=== PATIENT | female | born 1980 | race Caucasian/White ===

== ENCOUNTER 2017-07-08 16:56 | Emergency (ER) | payer OTHER ==
[2017-07-08 17:06] VITALS: BP 127/71; PULSE 81; TEMP 98.6; BMI 26.4
--- NOTE | 2017-07-08 17:06 | PDOC ---
Rapid Medical Evaluation Time Seen by Provider: 07/08/17 17:04 Medical Evaluation: 07/08/17 17:04 I have performed a brief in-person evaluation of this patient. The patient presents with a chief complaint of: L breast pain x several days Pertinent physical exam findings:Stable and well delia w/ benign abd (breast exam deferred for FT provider) I have ordered the following:nothing The patient will proceed to the ED for further evaluation.
[2017-07-08] MEDS ORDERED: CEPHALEXIN MONOHYDRATE 500 MG CAPSULE (UD) PO ONE (18:29)
--- NOTE | 2017-07-08 18:30 | PDOC ---
History of Present Illness - General Chief Complaint: Abscess Boil Stated Complaint: PAIN Time Seen by Provider: 07/08/17 17:04 History Source: Patient Exam Limitations: No Limitations - History of Present Illness Initial Comments: 07/08/17 18:33 My chief complaint: Left Breast redness and tenderness History of present illness: Patient is a 36-year-old female with no significant medical history here today complaining of worsening redness and tenderness of her left breast that started 4 days ago. Patient reports that she noticed a tiny reddened area under her left breast that has gotten bigger and more tender and firm or. Patient denies having any breast implants. Patient denies shaving breast area. Patient denies any nipple discharge or any inversion of nipple. Patient reports having her menstrual cycle today starting. Patient also reports having her menstrual cycle twice in the month of May which was abnormal for her. Patient does not use any control. Timing/Duration: getting worse Severity: moderate Associated Symptoms: reports: denies symptoms Past History - Past Medical History Allergies/Adverse Reactions: Allergies Allergy/AdvReac Type Severity Reaction Status Date / Time No Known Allergies Allergy Verified 07/08/17 17:06 Home Medications: Ambulatory Orders Cephalexin [Keflex] 500 mg PO Q6H #39 capsule MDD 2000mg 07/08/17 COPD: No Other medical history: NONE - Suicide/Smoking/Psychosocial Hx Smoking History: Never smoked Hx Alcohol Use: Yes (SOCIAL) Drug/Substance Use Hx: No Substance Use Type: None Review of Systems - Review of Systems Able to Perform ROS?: Yes Constitutional: No: Symptoms Reported HEENTM: No: Symptoms Reported Respiratory: No: Symptoms reported Cardiac (ROS): No: Symptoms Reported Integumentary: Yes: Other (left breast erythema, tenderness getting worse 4 days ) Neurological: No: Symptoms reported *Physical Exam - Vital Signs Last Vital Signs Temp Pulse Resp BP Pulse Ox 98.6 F 81 20 127/71 99 07/08/17 17:02 07/08/17 17:02 07/08/17 17:02 07/08/17 17:02 07/08/17 17:02 - Physical Exam General Appearance: Yes: Appropriately Dressed Respiratory/Chest: positive: Lungs Clear, Normal Breath Sounds. negative: Chest Tender, Respiratory Distress Cardiovascular: positive: Regular Rhythm, Regular Rate, S1, S2 Comments:: 07/08/17 18:57 Bilateral breasts symmetrical, no nipple inversion, cracking or discharge, no peau d'orange left breast well demarcated erythema with firmness and tenderness extending from 10 o'clock to 2 o'clock with radius medially 4 cm laterally 7 cm. no masses palpated or rt. breast 07/11/17 19:05 07/11/17 19:08 Lymphatic: positive: Other (no clavicular, axillary nodes palpated ) Medical Decision Making - Medical Decision Making 07/08/17 18:36 Patient is a 36-year-old female with no significant medical history here today complaining of worsening redness and tenderness of her left breast that started 4 days ago. Patient reports that she noticed a tiny reddened area under her left breast that has gotten bigger and more tender and firm or. Patient denies having any breast implants. Patient denies shaving breast area. Patient denies any nipple discharge or any inversion of nipple. Patient reports having her menstrual cycle today starting. Patient also reports having her menstrual cycle twice in the month of May which was abnormal for her. Patient does not use any control. Left breast cellulitis with possible abscess PLAN: urine hcg keflex 500 mg po now then every 6 hrs for 10 days follow up tomorrow with Dr. Fuentes *DC/Admit/Observation/Transfer Diagnosis at time of Disposition: Cellulitis of left breast, Abscess of breast - Discharge Dispostion Disposition: HOME Condition at time of disposition: Stable - Prescriptions Prescriptions: Cephalexin [Keflex] 500 mg PO Q6H #39 capsule MDD 2000mg - Referrals Referrals: Hilario Ernst MD [Staff Physician] - - Patient Instructions Additional Instructions: Apply a warm cloth to left breast every 2 hours while awake Follow up with Dr. Ernst tomorrow Return to emergency room if symptoms worsen or fever take ibuprofen as directed by nipple machine operator for pain Patient voiced understanding of discharge instructions and all questions were answered - Post Discharge Activity
[2017-07-08] MEDS ORDERED: IBUPROFEN 600 MG TABLET (FP) PO ONE ×2 (18:51→18:55)
[2017-07-08] MEDS ORDERED: CEPHALEXIN MONOHYDRATE 500 MG CAPSULE (UD) ONE (18:51)
== END 2017-07-08 19:11 | disposition home or self-care (01) ==
LOC: JERFT 16:56
DX: N61.1 Abscess of the breast and nipple (principal)
CPT/HCPCS: 84703; 99281-25